=== PATIENT | female | born 1960 | race Caucasian/White ===

== ENCOUNTER 2016-12-28 09:55 | Day surgery (SDC) | payer OTHER ==
--- NOTE | ~2016-12-28 | EGD ---
EGD REPORT [facility] [address] [address] NAME: SHERRIE WEINSTEIN : 56 STATUS : REG [facility] [place] PAT#: [id number] AGE: 56 ADM/REG DATE : 12/28/16 MR#: [id number] REPORT SERV DATE: 12/28/16 DICTATED BY: FRANCK VOGT DATE: 12/28/16 REPORT STATUS : Draft TRANSCRIBED BY: [facility] DATE: 12/28/16 Endoscopy Center Patient Name: Sherrie Weinstein Date of : 1960 Attending MD: FRANCK VOGT MD Procedure Date No Time: 12/28/2016 Procedure: Upper GI endoscopy Indications: Abdominal pain in the left upper quadrant, Dysphagia, Diarrhea Referring MD: ASIF ROCHA Medicines: as per anesthesia Complications: No immediate complications. Procedure: After obtaining informed consent, the endoscope was passed under direct vision. Throughout the procedure, the patient's blood pressure, pulse, and oxygen saturations were monitored continuously. The GIF [id number] was introduced through the mouth, and advanced to the third part of duodenum. The upper GI endoscopy was accomplished without difficulty. The patient tolerated the procedure. Findings: The examined esophagus was normal. The scope was withdrawn. Dilation was performed with a Blas dilator with no resistance at 44 Fr. The entire examined stomach was normal. The cardia and gastric fundus were normal on retroflexion. The examined duodenum was normal. Biopsies were taken with a cold forceps for histology. Impression: - Normal esophagus. Dilated. - Normal stomach. - Normal examined duodenum. Biopsied. Recommendation: - Await pathology results. Procedure Code(s): --- Professional --- 82089, Esophagogastroduodenoscopy, flexible, transoral; with biopsy, single or multiple 15717, Dilation of esophagus, by unguided sound or bougie, single or multiple passes Diagnosis Code(s): --- Professional --- R10.12, Left upper quadrant pain R13.10, Dysphagia, unspecified R19.7, Diarrhea, unspecified EGD REPORT [address] [place]. [address] NAME: SHERRIE WEINSTEIN : [birth year] STATUS : REG [facility] [place] PAT#: [id number] AGE: 56 ADM/REG DATE : 12/28/16 MR#: [id number] REPORT SERV DATE: 12/28/16 DICTATED BY: FRANCK VOGT DATE: 12/28/16 REPORT STATUS : Draft TRANSCRIBED BY: [facility] DATE: 12/28/16 CPT copyright 2013 [employer]. All rights reserved. The codes documented in this report are preliminary and upon machine accountant review may be revised to meet current compliance requirements. FRANCK VOGT MD 12/28/2016 12:51 PM This report has been signed electronically. Number of Addenda: 0 Note Initiated On: 12/28/2016 12:28 PM Scope Withdrawal Time 0 hours 0 minutes [address] [place], [place] [address]daiana [place] [address]
--- NOTE | ~2016-12-28 | EGD ---
EGD REPORT [place] [address] [address] NAME: SHERRIE WEINSTEIN : [birth year] STATUS : REG [facility] [place] PAT#: [id number] AGE: 56 ADM/REG DATE : 12/28/16 MR#: [id number] REPORT SERV DATE: 12/28/16 DICTATED BY: FRANCK VOGT DATE: 12/28/16 REPORT STATUS : Draft TRANSCRIBED BY: [facility] DATE: 12/28/16 Endoscopy Center Patient Name: Sherrie Weinstein Date of : 1960 Attending MD: FRANCK VOGT MD Procedure Date No Time: 12/28/2016 Procedure: Colonoscopy Indications: Abdominal pain in the left upper quadrant, Clinically significant diarrhea of unexplained origin, FH of Colonic Polyps - 1st degree relative Referring MD: ASIF ROCHA Medicines: as per anesthesia Complications: No immediate complications. Procedure: After I obtained informed consent, the scope was passed under direct vision. Throughout the procedure, the patient's blood pressure, pulse, and oxygen saturations were monitored continuously. The PCF [id number] was introduced through the anus and advanced to the cecum, identified by appendiceal orifice and ileocecal valve. The colonoscopy was performed without difficulty. The patient tolerated the procedure. The quality of the bowel preparation was poor. Findings: The perianal and digital rectal examinations were normal. A single medium-mouthed diverticulum was found in the sigmoid colon. Internal hemorrhoids were found during endoscopy and were mild. Four biopsies were obtained in the rectum and in the ascending colon with cold forceps for histology. Impression: - Preparation of the colon was poor. - Diverticulosis in the sigmoid colon. - Internal hemorrhoids. - Four biopsies were obtained in the rectum and in the ascending colon. Recommendation: - Await pathology results. - Repeat colonoscopy in 3 years for surveillance. Procedure Code(s): --- Professional --- 97194, Colonoscopy, flexible, proximal to splenic flexure; with biopsy, single or multiple Diagnosis Code(s): --- Professional --- K64.8, Other hemorrhoids EGD REPORT [address] [address] NAME: SHERRIE WEINSTEIN : 56 STATUS : REG [facility]#: [id number] AGE: 56 ADM/REG DATE : 12/28/16 MR#: [id number] REPORT SERV DATE: 12/28/16 DICTATED BY: FRANCK VOGT DATE: 12/28/16 REPORT STATUS : Draft TRANSCRIBED BY: [facility] SERVICES DATE: 12/28/16 K57.30, Diverticulosis of large intestine without perforation or abscess without bleeding R10.12, Left upper quadrant pain R19.7, Diarrhea, unspecified Z83.71, Family history of colonic polyps CPT copyright 2013 [employer]. All rights reserved. The codes documented in this report are preliminary and upon field pipelines supervisor review may be revised to meet current compliance requirements. FRANCK VOGT MD 12/28/2016 1:11 PM This report has been signed electronically. Number of Addenda: 0 Note Initiated On: 12/28/2016 12:27 PM
[~2016-12-28 09:55] MED LIST: ACTONEL PO; ACTONEL150 MG PO; ASAB PO; ATIVAN2 MG PO; CALTRAT600 PO; ENJUVIA1.25 MG PO; ESTRADIOL2 MG PO; ESTROGEN; FISH OIL1200 MG PO; GAS-X80 MG PO; GENASYME80 MG PO; GUMMY FIBER PO; GUMMY MVI PO; GUMMY PROBIOTIC PO; HCTZ50B PO; HYZAAR 100/25 T1 TAB PO; IMOD PO; KLOR-CON M2020 MEQ PO; L20 PO; LEVOTHYROXIN50 MCG PO; LISINOPRIL40 MG PO; NEXIUM40 PO; NORCO1 TAB PO; PRIN20 PO; QVAR80 MCG INH; TOPXL100 PO; TRICOR145 PO; VENTOLIN HFA INH; VIST100 PO; VITAMIN B-121000 MC1 SL; XANAX1 MG PO; XANAX2 MG PO; ZESTRIL20 MG PO; ZOFRAN8 PO
== END 2016-12-28 23:59 | disposition home or self-care (01) ==
LOC: DMU 09:55
PROVIDERS: Internal Medicine Gastroenterology
PROC: 0D757ZZ Dilation of Esophagus, Via Natural or Artificial Opening (ICD-10-PCS; 2016-12-28)
PROC: 0DBP8ZX Excision of Rectum, Via Natural or Artificial Opening Endoscopic, Diagnostic (ICD-10-PCS; principal; 2016-12-28 11:30)
PROC: 0DBK8ZX Excision of Ascending Colon, Via Natural or Artificial Opening Endoscopic, Diagnostic (ICD-10-PCS; 2016-12-28 11:30)
PROC: 0DB98ZX Excision of Duodenum, Via Natural or Artificial Opening Endoscopic, Diagnostic (ICD-10-PCS; 2016-12-28 11:30)
DX: K64.8 Other hemorrhoids (principal); K57.30 Diverticulosis of large intestine without perforation or abscess without bleeding; R10.12 Left upper quadrant pain; R19.7 Diarrhea, unspecified; R13.10 Dysphagia, unspecified; I10 Essential (primary) hypertension; J45.909 Unspecified asthma, uncomplicated; E03.9 Hypothyroidism, unspecified; K21.9 Gastro-esophageal reflux disease without esophagitis; F41.9 Anxiety disorder, unspecified; F32.9 Major depressive disorder, single episode, unspecified; D68.51 Activated protein C resistance; Z90.49 Acquired absence of other specified parts of digestive tract; K58.9 Irritable bowel syndrome, unspecified; M19.90 Unspecified osteoarthritis, unspecified site; Z98.1 Arthrodesis status; R01.1 Cardiac murmur, unspecified; I49.9 Cardiac arrhythmia, unspecified; R00.0 Tachycardia, unspecified; Z86.718 Personal history of other venous thrombosis and embolism; Z83.71 Family history of colonic polyps; Z90.710 Acquired absence of both cervix and uterus; Z98.890 Other specified postprocedural states; Z90.89 Acquired absence of other organs; Z88.8 Allergy status to other drugs, medicaments and biological substances; Z88.6 Allergy status to analgesic agent; Z88.1 Allergy status to other antibiotic agents; Z79.899 Other long term (current) drug therapy; Z79.891 Long term (current) use of opiate analgesic
CPT/HCPCS: 88305; J1580; J3370